=== PATIENT | male | born 1955 | race Caucasian/White ===

== ENCOUNTER 2018-08-14 08:58 | Emergency (ER) | payer MEDICAID ==
--- NOTE | 2018-08-14 10:03 | EDPHY ---
H & P Stated Complaint: Hands and feet swelling. Time Seen by Provider: 08/14/18 09:18 HPI/ROS: CLINICAL IMPRESSION: Weakness, diarrhea, intermittent extremity swelling ASSESSMENT/PLAN: 62-year-old homeless male presents to the ED with complaints of intermittent upper and lower extremity swelling, weakness and diarrhea for the last 4 days. Please see HPI for full details. Patient has no obvious extremity swelling, pitting edema, joint effusion, septic arthritis, or clinical evidence of CHF today. Chest x-ray reassuring, no acute cardiopulmonary disease. Vital signs stable, no hypoxia. Labs show no evidence of leukocytosis, electrolyte imbalance, metabolic disturbance, transaminitis, pancreatitis, or severe dehydration. Patient met with case management as he is new in this area and we were able to arrange a follow up at [facility] tomorrow. I ensured him this would help establish follow-up with GI for his hepatitis C and cirrhosis as well as discussion about restarting medication for his attention deficit hyperactivity disorder. Patient does not appear toxic or septic. He is appreciative of his treatment and will follow-up as scheduled. Warning signs for return to ED outlined in person and discharge papers. DIFFERENTIAL DX: Includes but not limited to Acute on chronic transaminitis, pancreatitis CHF, lymphedema, electrolyte imbalance, dehydration, infection ED COURSE: 1000: Case discussed with Rosalina with [employer] work, she will work on getting patient establish with PCP and shelters. 1108: Patient reassessed, labs reviewed, no significant electrolyte imbalance, transaminitis, pancreatitis, or leukocytosis. Social Work set up an appointment for patient with [facility] tomorrow at 9:25 a.m. And we arranged transportation to a [facility] today. Patient is agreeable to this plan. CHIEF COMPLAINT: Intermittent hand and bilateral lower extremity swelling, weakness, diarrhea HPI: This is a 62-year-old homeless male who presents to the emergency department with multiple vague complaints. He states he has had intermittent hand, bilateral calf and feet swelling for the last 4 days. He also reports feeling increased weakness this morning, difficulty walking to his bus stop and diarrhea after any meal for the last 3 days. Patient reports he was released from [place] [facility] approximately 1 month ago. He was seen at [facility] 4 days ago for intermittent lower extremity swelling and allegedly sent to [place] by [email or web address] for placement in a homeless longterm. Patient was incarcerated related to methamphetamine use. He reports a past medical history of hepatitis C from IV drug abuse in the 80s and cirrhosis from chronic alcohol abuse. He reports he has been sober off alcohol for 3 years. He has not used methamphetamine for nearly 5 months, and reports that he only used it once and was then caught by police. He currently has a caseworker protective services through a facility in [place] and reports he would like to obtain a apartment in the [facility]. He has not received any treatment for his hepatitis-C. He was on Adderall for attention deficit hyperactivity disorder before this was discontinued by his primary care doctor 1 year ago which caused him to turn to methamphetamine. While incarcerated he was started on Trileptal which she has now been off for 3 weeks. Patient reports no swelling of his legs today, no shortness of breath, chest pain, abdominal pain, bloody stools or vomiting. No history of DVT or PE. He states he walks frequently during the day. He is currently not taking any medications. He plans on [facility] for the next several days. Incidentally he had a positive TB test in the 80s, did INH treatment, and has not had any symptoms of TB but is requested by the homeless longterm to have a chest x-ray in the ED today. PMH: Distant history of treated tuberculosis, hepatitis-C, cirrhosis, attention deficit hyperactivity disorder Pertinent Past Surgical History: Noncontributory Family History: Not asked Social History: Homeless ROS: All other systems negative Constitutional: No fever, no chills, appetite change. Eyes: No discharge, vision change ENT: No sore throat, congestion, ear pain. Cardiovascular: No chest pain, no palpitations. Respiratory: No cough, no shortness of breath. Gastrointestinal: No abdominal pain, no vomiting Genitourinary: No hematuria, dysuria, flank pain, pelvic pain Musculoskeletal: No back pain, joint swelling, joint pain, myalgias. Skin: No rashes, color change. Neurological: No headache, dizziness. PHYSICAL EXAM: General Appearance: Alert, oriented, appropriate, cooperative, NAD, well hydrated, non-toxic appearing, VSS, no hypoxia. HEENT: [TMs are clear bilaterally no perforation or FB, no injection, no evidence of serous or mucopurulent otitis. Oropharynx clear is no erythema or exudates, no tonsillar hypertrophy or asymmetry. Multiple teeth missing on entire upper jaw Eyes: PERRLA, no acute vision change, nystagmus, swelling, discharge, pain or photosensitivity. Conjunctiva pink, no pallor or injection, no icterus Neck: Supple, nontender, no lymphadenopathy, no midline pain, FROM, no meningismus. Respiratory: There are no retractions, lungs are clear to auscultation. Cardiac: Regular rate and rhythm, no murmurs or gallops. Gastrointestinal: Abdomen is soft, nontender, bowel sounds normal, no masses/ hernia, no rigidity, guarding or focal peritoneal findings. Neurological: Alert and oriented x 3, CN 2-12 grossly intact, normal gait no ataxia, DTR's intact, normal sensation and strength Skin: Warm, dry, no rashes, no nodules on palpation. Musculoskeletal: Extremities are symmetrical, full range of motion, no tenderness, deformity, swelling, or erythema. Patient has what appears to be chronic arthritis changes to the MCPs of right greater than left hand. No pitting edema to lower extremities. Distal neurovascular exam intact Psychiatric: Patient is oriented X 3, there is no agitation. MDM: Patient was seen independently by established practice protocols. Secondary supervising physician at time of evaluation was Dr. Calvert. Diagnosis: Weakness, intermittent extremity edema, diarrhea. New, requires workup Summary: See Assessment and Plan for summary of ED visit Clinical lab tests: ordered / reviewed. Independent visualization of images, tracing, or specimens: Yes. Discussed patient with another provider: Case casey saw operator, rosalina Risk of comlications, morbidity, mortality: Presenting problem moderate Diagnostic procedures moderate Management Options monitor Patient Progress: Stable. - Personal History Current Tetanus Diphtheria and Acellular Pertussis (TDAP): Yes - Medical/Surgical History Hx Asthma: No Hx Chronic Respiratory Disease: No Hx Diabetes: No Hx Cardiac Disease: No Hx Renal Disease: No Hx Cirrhosis: Yes Hx Alcoholism: Yes Hx HIV/AIDS: No Hx Splenectomy or Spleen Trauma: No Other PMH: ADHD. Anxiety. Cirrhosis. Hep C. - Social History Smoking Status: Former smoker Constitutional: Initial Vital Signs Temperature (C) 36.9 C 08/14/18 09:05 Heart Rate 81 08/14/18 09:05 Respiratory Rate 16 08/14/18 09:05 Blood Pressure 130/80 H 08/14/18 09:05 O2 Sat (%) 98 08/14/18 09:05 O2 Delivery Mode Room Air Allergies/Adverse Reactions: No Known Allergies Allergy (Unverified 08/14/18 09:10) Home Medications: Medication Instructions Recorded NK [No Known Home Meds] 08/14/18 Medical Decision Making - Diagnostics Imaging Results: Imaging Impressions Chest X-Ray 08/14/18 09:39 Impression: Negative for acute abnormality. No evidence for pulmonary edema. - Data Points Laboratory Results: Laboratory Results 08/14/18 09:45 08/14/18 09:45 08/14/18 08/14/18 09:45 09:45 WBC 7.40 10^3/uL 10^3/uL (3.80-9.50) RBC 4.86 10^6/uL 10^6/uL (4.40-6.38) Hgb 15.0 g/dL g/dL (13.7-17.5) Hct 44.7 % % (40.0-51.0) MCV 92.0 fL fL (81.5-99.8) MCH 30.9 pg pg (27.9-34.1) MCHC 33.6 g/dL g/dL (32.4-36.7) RDW 13.0 % % (11.5-15.2) Plt Count 275 10^3/uL 10^3/uL (150-400) MPV 9.7 fL fL (8.7-11.7) Neut % (Auto) 67.1 % % (39.3-74.2) Lymph % (Auto) 21.1 % % (15.0-45.0) [place] % (Auto) 8.5 % % (4.5-13.0) Eos % (Auto) 2.7 % % (0.6-7.6) Baso % (Auto) 0.5 % % (0.3-1.7) Nucleat RBC Rel Count 0.0 % % (0.0-0.2) Absolute Neuts (auto) 4.96 10^3/uL 10^3/uL (1.70-6.50) Absolute Lymphs (auto) 1.56 10^3/uL 10^3/uL (1.00-3.00) Absolute Monos (auto) 0.63 10^3/uL 10^3/uL (0.30-0.80) Absolute Eos (auto) 0.20 10^3/uL 10^3/uL (0.03-0.40) Absolute Basos (auto) 0.04 10^3/uL 10^3/uL (0.02-0.10) Absolute Nucleated RBC 0.00 10^3/uL 10^3/uL (0-0.01) Immature Gran % 0.1 % % (0.0-1.1) Immature Gran # 0.01 10^3/uL 10^3/uL (0.00-0.10) Sodium 140 mEq/L mEq/L (135-145) Potassium 4.5 mEq/L mEq/L (3.3-5.0) Chloride 106 mEq/L mEq/L (97-110) Carbon Dioxide 26 mEq/l mEq/l (22-31) Anion Gap 8 mEq/L mEq/L (6-14) BUN 16 mg/dL mg/dL (7-23) Creatinine 1.0 mg/dL mg/dL (0.7-1.3) Estimated GFR > 60 Glucose 98 mg/dL mg/dL (70-100) Calcium 9.3 mg/dL mg/dL (8.5-10.4) Total Bilirubin 0.4 mg/dL mg/dL (0.1-1.4) AST 25 IU/L IU/L (17-59) ALT 38 IU/L IU/L (21-72) Alkaline Phosphatase 60 IU/L IU/L (38-126) Total Protein 7.2 g/dL g/dL (6.3-8.2) Albumin 4.0 g/dL g/dL (3.5-5.0) Lipase 84 IU/L IU/L (23-300) Departure - Departure Disposition: Home, Routine, Self-Care Clinical Impression: Weakness Diarrhea Qualifiers: Diarrhea type: unspecified type Qualified Code(s): R19.7 - Diarrhea, unspecified Condition: Good Instructions: Weakness (ED) Additional Instructions: Chest x-ray shows no signs and symptoms of TB. DISCHARGE INSTRUCTIONS FROM YOUR DOCTOR Thank you for visiting our emergency department today. Please keep in mind that discharge from the emergency department does not mean that there is nothing wrong - it simply means that we have not identified an emergency condition that requires further evaluation or treatment in the hospital. You should always plan to follow up with primary care for re-evaluation of your condition in the next 2-3 days. If you have been referred to a specialist, please call as soon as possible (today or tomorrow) to schedule your follow up appointment at the appropriate time. Your lab work today is reassuring. Please follow-up with [facility] tomorrow at 9:25 a.m. As scheduled. We have provided you transportation to the day shoulder today. Please stay well hydrated and eat regular meals. Primary Care can help establish appointments with Gastroenterology for you're hepatitis C and cirrhosis. Your chest x-ray today was unremarkable. Please return to the emergency department for worsening symptoms, return of swelling to her legs or arms, shortness of breath or chest pain, abdominal pain or distention, or any other concerns. People present with illnesses and injuries in different ways, and it is always possible that we have missed something. You may always return for re-evaluation if symptoms worsen or if they are not improving or if you develop new/different symptoms. Again, thank you for choosing our emergency department. We hope that you feel better. Referrals: ROBERTO LLANOS [Other] - As per Instructions [facility],. [Clinic] - As per Instructions
[2018-08-14 10:05] LABS: PLATELET COUNT 275 10^3/uL (150-400)
[2018-08-14 11:09] VITALS: BP 106/72
--- NOTE | 2018-08-14 17:00 | ASMTCMCOM ---
CM Note CM Note Notes: Pt presented to the ED for bilateral leg/foot/hand swelling. Spoke w/patient and he states he was recently at [facility] a few days ago and they provided a cab for him to the [facility]. Pt states he has completed Coordinated Entry and was referred to [facility]. Pt states that while living in the [place] area he had been working with a [employer] through [employer] ([phone]) in [place] and he is waiting for housing in [place]; pt states this is probably why [facility] cab'd him to [place]. Pt provided an appt at [facility] tomorrow at 9:25am. Pt provided PC location and contact info and states he plans on making it to the appt. Pt also provided various other local homelessness resources. Pt states he has been having difficulty walking due to the swelling and weakness. Due to time constraints on this CM, pt was provided a cab voucher (vs Medicaid cab) to the day correction being offered at [facility] to [facility]. Pt very pleasant and appreciative of assistance. CM available for further assistance. Date Signed: 08/14/2018 04:59 PM Electronically Signed By:Rosalina Zaman RN
== END 2018-08-14 11:25 | disposition home or self-care (01) ==
DX: R19.7 Diarrhea, unspecified (principal); M79.89 Other specified soft tissue disorders; B19.20 Unspecified viral hepatitis C without hepatic coma; Z59.0 Homelessness

== ENCOUNTER 2019-03-18 22:04 | Emergency (ER) | payer MEDICAID | END 2019-03-19 06:02 | disposition home or self-care (01) ==

== ENCOUNTER 2019-03-31 16:33 | Emergency (ER) | payer MEDICAID | END 2019-03-31 20:39 | disposition home or self-care (01) ==